=== PATIENT | female | born 1995 | race African-American/Black ===

== ENCOUNTER 2018-03-27 18:56 | Emergency (ER) | payer OTHER ==
[~2018-03-27] VITALS: Ht 160 cm; Wt 83.9 kg
--- NOTE | 2018-03-27 19:10 | NUR ---
BIBSELF C/O +SI/-HI W/NO PLAN. PATIENT STATES SHE IS 4 MONTHS . NOTED HEMATOMA TO R EYE, PATIENT DID NOT WANT TO TALK ABOUT HER INJURY. PT IS AAOX4. NO S/S OF ACTIVE DISTRESS NOTED. RR EVEN AND UNLABORED. PT PLACED ON MONITOR AND POX. PT SAFETY AND COMFORT MEASURES IN PLACE. MD BEDSIDE FOR EVAL. WILL CONTINUE TO MONITOR PT. SI PRECAUTIONS IN PLACE.
--- NOTE | 2018-03-27 19:30 | NUR ---
PSYCIATRIC CERAMIC RESTORER MIRELLA BEDSIDE WITH PT.
[2018-03-27 19:44] LABS: BASOPHILS # (AUTO) 0.1 /CMM (0.0-0.2); BASOPHILS % (AUTO) 0.9 % (0.0-2.0); HEMATOCRIT 34 % (33-45); HEMOGLOBIN 11.5 g/dL (11.5-14.8); LYMPHOCYTES # (AUTO) 2.7 /CMM (0.8-4.8); LYMPHOCYTES % (AUTO) 28.1 % (20.0-44.0); MEAN CORPUSCULAR HGB CONC 34 g/dl (31.0-36.0); MEAN CORPUSCULAR VOLUME 93 fL (82-100); MONOCYTES # (AUTO) 0.5 /CMM (0.1-1.30); MONOCYTES % (AUTO) 4.9 % (2.0-12.0); NEUTROPHILS # (AUTO) 6.2 /CMM (1.8-8.9); NEUTROPHILS % (AUTO) 65.1 % (43.0-81.0); PLATELET COUNT (AUTO) 169 /CMM (150-450); WHITE BLOOD COUNT (AUTO) 9.5 K/uL (4.3-11.0)
--- NOTE | 2018-03-27 20:00 | NUR ---
PER PSYCIATRIC POST TRONIC MACHINE OPERATOR MIRELLA, PT IS NO LONGER SUICIDAL.
[2018-03-27 20:02] LABS: ALANINE AMINOTRANSFERASE 15 U/L (12-78); ALCOHOL, BLOOD < 3 mg/dL (0-0); ALKALINE PHOSPHATASE 47 U/L (46-116); ASPARTATE AMINOTRANSFERASE 26 U/L (15-37); BILIRUBIN,DIRECT 0.1 mg/dL (0.0-0.2); BILIRUBIN,TOTAL 0.2 mg/dL (0.2-1.0); CALCIUM, SERUM 8.6 mg/dL (8.5-10.1); CARBON DIOXIDE 27 mmol/L (21-32); CHLORIDE 105 mmol/L (98-107); CREATININE 0.6 mg/dL (0.6-1.3); GLUCOSE 72 mg/dL (74-106); POTASSIUM 3.5 mmol/L (3.5-5.1); SODIUM SERUM 140 mmol/L (136-145); TOTAL PROTEIN, SERUM 6.6 g/dL (6.4-8.2); UREA NITROGEN, BLOOD 7 mg/dL (7-18)
[2018-03-27 20:02] LABS: APPEARANCE,URINE Clear (CLEAR); BILIRUBIN,URINE Negative (NEGATIVE); BLOOD, URINE Negative Ery/uL (NEGATIVE); COLOR,URINE Yellow (YELLOW); KETONES,URINE Trace (NEGATIVE); LEUKOCYTE ESTERASE ,URINE Negative (NEGATIVE); NITRITE, URINE Negative (NEGATIVE); PH,URINE 6.5 (5.0-8.0); PROTEIN,URINE Negative (NEGATIVE); UGLUCOSE Negative (NEGATIVE); UROBILINOGEN,URINE 0.2 EU/dL (0.2)
[2018-03-27 20:04] LABS: ACETAMINOPHEN < 10 ug/ml (10-30); SALICYLATE 1.3 mg/dL (2.8-20.0)
[2018-03-27 20:43] LABS: BACTERIA,URINE None seen /HPF (None Seen); RBC,URINE NONE SEEN /HPF (0-2); SQUAMOUS EPITHELIAL CELL,UR Few /HPF (None Seen); WBC,URINE 0-2 /HPF (0-3)
--- NOTE | 2018-03-27 23:01 | NUR ---
Patient is resting comfortably in bed with eyes open. Easily aroused. VSS
--- NOTE | 2018-03-28 00:02 | NUR ---
Patient is resting comfortably in bed with eyes closed. Easily aroused. VSS
--- NOTE | 2018-03-28 02:45 | NUR ---
PT RESTING IN BED WITH NO S/S OF ACUTE DISTRESS NOTED. WILL CONTINUE TO MONITOR PT.
[2018-03-28] MEDS ORDERED: OLANZAPINE 5 MG TABLET PO ONE (04:30)
--- NOTE | 2018-03-28 05:46 | NUR ---
Patient is resting comfortably in bed with eyes closed. Easily aroused. VSS. WILL CONTINUE TO MONITOR PT.
--- NOTE | 2018-03-28 07:49 | NUR ---
REPORT GIVEN TO ADMINISTRATIVE SPECIALIST GENER FOR [facility]IN
--- NOTE | 2018-03-28 07:50 | NUR ---
WAITING ON CASE MANAGEMENT FOR PLACEMENT. BREAKFAST TRAY ORDERED
--- NOTE | 2018-03-28 08:15 | NUR ---
breakfast tray given to pt
--- NOTE | 2018-03-28 10:04 | NUR ---
PT SLEEPING AT PRESENT
--- NOTE | 2018-03-28 10:35 | NUR ---
Pt apparently contacted [facility] [phone] and opts for discharge to go to [place] [facility]. Discharged in Stable condition AAO x3, ambulatory. Gait Steady. Instructions given-verbalized understanding
[2018-03-28 10:38] VITALS: BP 120/60
== END 2018-03-28 10:40 | disposition home or self-care (01) ==
LOC: ER 19:02
DX: O99.342 Other mental disorders complicating pregnancy, second trimester (principal); F32.9 Major depressive disorder, single episode, unspecified; F41.9 Anxiety disorder, unspecified; F43.10 Post-traumatic stress disorder, unspecified; F17.200 Nicotine dependence, unspecified, uncomplicated; Z59.0 Homelessness; Z3A.16 16 weeks gestation of pregnancy
CPT/HCPCS: 36415; 80048-TC; 80076-TC; 80305; 81000-TC; 84703-TC; 85025-TC; A4606; G0480; Z7610